=== PATIENT | female | born 1980 | race Two or more races ===

== ENCOUNTER 2018-03-01 10:17 | Outpatient (CLI) | payer OTHER | END 2018-03-01 10:22 | disposition home or self-care (01) | LOC: SONOGRAMA 10:17 → MAMO-SONO 10:30 | DX: N84.0 Polyp of corpus uteri (principal); N92.0 Excessive and frequent menstruation with regular cycle ==

== ENCOUNTER 2018-07-13 05:27 | Day surgery (SDC) | payer OTHER ==
[2018-07-13] MEDS ORDERED: CODE1TAB37 PO (08:37)
[2018-07-13] MEDS ORDERED: DOXYCYCLINE HY100 MG PO (08:37)
== END 2018-07-13 13:50 | disposition home or self-care (01) ==
LOC: CIR.AMB 05:27
DX: D25.0 Submucous leiomyoma of uterus (principal); N84.0 Polyp of corpus uteri